=== PATIENT | female | born 1980 | race Hispanic/Latino ===

== ENCOUNTER 2020-11-22 17:53 | Emergency (ER) | payer SELFPAY ==
[2020-11-22 18:05] VITALS: BP 140/88; PULSE 90; RESP 18; TEMP 36.8; O2SAT 98
--- NOTE | 2020-11-22 18:09 | PC.NURSE ---
patient told registration from [place], told science writer she lives here in [facility]
--- NOTE | 2020-11-22 18:11 | PC.NURSE ---
asking patient for pharmacy patient states she is just traveling through, needing some thing to help for pain
--- NOTE | 2020-11-22 18:24 | ED.EAR ---
HPI - Ear Problem General Chief complaint: Ear Stated complaint: ear pain, ringing,hard time hearing. Time Seen by Provider: 11/22/20 18:10 Source: patient Mode of arrival: ambulatory Limitations: no limitations History of Present Illness HPI Narrative: Patient come in with complaints of pain in the left ear. This has been ongoing for some days, but worse today. She denies fever, and chill, and other symptoms. She states she is worried her ears will get worse, and felt she had to come in because of these concerns. Discomfort is mild ongoing, not requiring any medication for relief. Complaint: ear pain Location: left ear Duration: intermittent Severity: mild Relieving factors: other (stops spontaneously) Exacerbating factors: nothing Related Data Allergies Allergy/AdvReac Type Severity Reaction Status Date / Time No Known Allergies Allergy Verified 11/22/20 18:10 Review of Systems Constitutional: Constitutional: Reports no additional constitutional complaints Eyes: Eyes: Reports no additional eye complaints ENT: Reports system reviewed and no additional complaints, except as documented Cardiovascular: Cardiovascular: Reports no additional cardiovascular complaints Respiratory: Respiratory: Reports no additional respiratory complaints Gastrointestinal: Gastrointestinal: Reports no additional gastrointestinal complaints Genitourinary: Genitourinary: Reports no additional female genitourinary complaints Musculoskeletal: Musculoskeletal: Reports no additional musculoskeletal complaints Integumentary/Breasts: Skin/Breast: Reports system reviewed and no additional complaints, except as docu Neurologic: Reports system reviewed and no additional complaints, except as documented Psychiatric: Psychiatric: Reports no additional psychiatric complaints Endocrine: Endocrine: Reports no additional endocrine complaints Hematologic/Lymphatic: Hematologic/Lymphatic: Reports no additional hematologic/lymphatic complaints Allergic/Immunologic: Allergic/Immunologic: Reports no additional allergic/immunologic complaints [facility] Past Medical History Medical History (Updated 11/22/20 @ 23:16 by Rafa Partida MD) No significant past medical history Surgical History Surgical History (Updated 11/22/20 @ 23:17 by Rafa Partida MD) No significant past surgical history Social History Social History (Updated 11/22/20 @ 23:16 by Rafa Partida MD) Smoking status: Never smoker Alcohol intake: never Gender identity (if verbalized by the patient): Female Exam Const: General: no acute distress HENMT: Head: normal to inspection Ears: external ears normal and TM's normal bilaterally (she appears to have a serous otitis on the left, drum has mild erythema, ) General nose exam: Normal external nose present Face and sinus: normal facial exam Mouth: Yes Normal oral and palatal mucosa present and Yes moist mucous membranes Throat: posterior oropharynx normal Eyes: Conjunctivae: conjunctivae normal Pupils: Equal, round and reactive pupils present Neck: Neck: normal visual inspection Resp: Effort & Inspection: normal respiratory effort Auscultation: clear to auscultation bilaterally Cardio: Rate: regular rate Rhythm: regular rhythm GI: Auscultation: normal bowel sounds Skin: General skin exam: normal color Neuro: General: patient oriented x3 and moves all extremities Extrem: General: normal to inspection Psych: Appearance: grossly normal Mental Status: mental status grossly normal Thought content: Yes Normal thought content present Course Course Emergency Course: She was evaluated. As her history is unclear, and she may be developing an otitis media, we hill discharge her with amoxil 500mg one tid, and ask her to follow upwith her family doctor in a few days. Vital Signs Vital signs: Vital Signs Temperature 36.8 C 11/22/20 18:05 Pulse Rate 90 11/22/20 18:05 Respiratory Rate 18 11/22/20 1
[2020-11-22 18:32] VITALS: BP 148/70; PULSE 88; RESP 18; TEMP 36.6; O2SAT 98
== END 2020-11-22 18:33 | disposition home or self-care (01) ==
PROVIDERS: Emergency Provider Emergency Medicine
DX: H65.02 Acute serous otitis media, left ear (principal)
CPT/HCPCS: 99283